=== PATIENT | female | born 1950 | race Hispanic/Latino ===

== ENCOUNTER 2017-04-15 19:23 | Emergency (ER) | payer MEDICARE, OTHER ==
[2017-04-15 19:32] VITALS: BP 131/56; PULSE 77; RESP 16; TEMP 97.6; O2SAT 100
--- NOTE | 2017-04-15 20:24 | ED PDOC ---
HPI: General Adult Time Seen by Provider: 04/15/17 19:31 Chief Complaint (Nursing): Foreign Body Chief Complaint (Provider): Right Foot Pain History Per: Patient History/Exam Limitations: no limitations Onset/Duration Of Symptoms: Hrs Current Symptoms Are (Timing): Still Present Additional Complaint(s): Samantha Brewer, a 67 year old female presents to the ED with left foot pain. The patient states that she may have steppe don something sharp. She reports that she tried to see what was in her foot but did not find anything. PMD: Hayley Wilson Past Medical History Reviewed: Historical Data, Nursing Documentation, Vital Signs Vital Signs: Last Vital Signs Temp 97.6 F 04/15/17 19:29 Pulse 77 04/15/17 19:29 Resp 16 04/15/17 19:29 BP 131/56 L 04/15/17 19:29 Pulse Ox 100 04/15/17 20:44 - Medical History PMH: No Chronic Diseases Denies: Chronic Kidney Disease - Family History Family History: States: Unknown Family Hx - Social History Current smoker - smoking cessation education provided: No Alcohol: None Drugs: Denies - Home Medications Home Medications: Ambulatory Orders Medication Instructions Recorded Clindamycin [Cleocin] 300 mg PO QID #40 cap 04/15/17 - Allergies Allergies/Adverse Reactions: Allergies Allergy/AdvReac Type Severity Reaction Status Date / Time cefaclor Allergy RASH Verified 04/15/17 19:36 ciprofloxacin [From Cipro] Allergy DIARRHEA Verified 04/15/17 19:36 clarithromycin [From Biaxin] Allergy DIARRHEA Verified 04/15/17 19:36 moxifloxacin [From Avelox] Allergy DIARRHEA Verified 04/15/17 19:36 nabumetone [From Relafen] Allergy HEADACHE Verified 04/15/17 19:36 nickel Allergy RASH Verified 04/15/17 19:36 nitrofurantoin Allergy SHORTNESS Verified 04/15/17 19:36 [From Macrodantin] OF BREATH phenazopyridine Allergy SHORTNESS Verified 04/15/17 19:36 [From Pyridium] OF BREATH sulfacetamide Allergy RASH Verified 04/15/17 19:36 Review of Systems Musculoskeletal: Positive for: Foot Pain (left foot pain) Physical Exam - Reviewed Nursing Documentation Reviewed: Yes Vital Signs Reviewed: Yes - Physical Exam Appears: Positive for: Non-toxic, No Acute Distress Head Exam: Positive for: ATRAUMATIC, NORMAL INSPECTION, NORMOCEPHALIC Skin: Positive for: Normal Color, Warm, Dry. Negative for: Rash Eye Exam: Positive for: Normal appearance, EOMI, PERRL. Negative for: Nystagmus Cardiovascular/Chest: Positive for: Regular Rate, Rhythm, Chest Non Tender. Negative for: Tachycardia Respiratory: Positive for: Normal Breath Sounds. Negative for: Rales, Rhonchi, Wheezing, Respiratory Distress Extremity: Positive for: Normal ROM, Other (2.5cm puncture wound noted to ball of left foot.). Negative for: Tenderness, Calf Tenderness, Deformity, Swelling Neurologic/Psych: Positive for: Alert, Oriented - ECG O2 Sat by Pulse Oximetry: 100 (RA) Pulse Ox Interpretation: Normal Medical Decision Making Medical Decision Makin Initial Impression: 67 year old female presenting with right foot pain Initial Plan: * Foot AP/LAT * Reevaluation * FB seen on x-ray. Podiatry consult completed. Pt to follow-up in the clinic tuesday. Scribe Attestation Documented by Paty Sharif acting as a scribe for Agnes Atwood PA-C. Scribe Attestation All medical record entries made by the Scribe were at my direction and personally dictated by me. I have reviewed the chart and agree that the record accurately reflects my personal performance of the history, physical exam, medical decision making, and the department course for this patient. I have also personally directed, reviewed, and agree with the discharge instructions and disposition. Disposition - Clinical Impression Clinical Impression: Soft tissues foreign body - Patient ED Disposition Is Patient to be Admitted: No Counseled Patient/Family Regarding: Diagnosis, Need For Followup, Rx Given - Disposition Referrals: Podiatry Clinic [Outside] Disposition: Routine/Home Disposition Time: 22:13 Condition: GOOD Additional Instructions: Please get medical clearance from your PMD for surgery. Follow-up with podiatry on tuesday. Prescriptions: Clindamycin [Cleocin] 300 mg PO QID #40 cap Instructions: Soft Tissue Foreign Body (ED)
--- NOTE | 2017-04-15 20:33 | CP.PCM.CON ---
History of Present Illness - History of Present Illness History of Present Illness: 67 year old female with PMHx including glaucoma and brain aneurism was seen in the ED for pain in the right foot. She states that around 3 pm today she stepped on something sharp and thinks that she may have a foreign body in her foot. She did not see what it was but thinks that it may be glass from a dropped drinking glass. She admits it is painful to weight bear on her right foot and is walking with weight to her heel. She washed it with soap and water afterwards and dressed with a bandaid. Denies any n/v/f/c/sob/cp. Past Patient History - Past Social History Smoking Status: Never Smoked - CARDIAC Other/Comment: Tricuspid valve regurgitation - PULMONARY Hx Respiratory Disorders: No - NEUROLOGICAL Other/Comment: Aneurysm - HEENT Hx Cataracts: Yes - RENAL Hx Chronic Kidney Disease: No - ENDOCRINE/METABOLIC Hx Endocrine Disorders: No - HEMATOLOGICAL/ONCOLOGICAL Hx Blood Disorders: No - INTEGUMENTARY Hx Dermatological Problems: No - MUSCULOSKELETAL/RHEUMATOLOGICAL Hx Musculoskeletal Disorders: No - GASTROINTESTINAL Hx Colitis: Yes - PSYCHIATRIC Hx Psychophysiologic Disorder: No Hx Substance Use: No - SURGICAL HISTORY Other/Comment: Craniotomy 1993, Bunionectomy, R meniscus repair - ANESTHESIA Hx Anesthesia: Yes Meds Allergies/Adverse Reactions: Allergies Allergy/AdvReac Type Severity Reaction Status Date / Time cefaclor Allergy RASH Verified 04/15/17 19:36 ciprofloxacin [From Cipro] Allergy DIARRHEA Verified 04/15/17 19:36 clarithromycin [From Biaxin] Allergy DIARRHEA Verified 04/15/17 19:36 moxifloxacin [From Avelox] Allergy DIARRHEA Verified 04/15/17 19:36 nabumetone [From Relafen] Allergy HEADACHE Verified 04/15/17 19:36 nickel Allergy RASH Verified 04/15/17 19:36 nitrofurantoin Allergy SHORTNESS Verified 04/15/17 19:36 [From Macrodantin] OF BREATH phenazopyridine Allergy SHORTNESS Verified 04/15/17 19:36 [From Pyridium] OF BREATH sulfacetamide Allergy RASH Verified 04/15/17 19:36 Physical Exam - Constitutional Appears: Well, Non-toxic, No Acute Distress - Extremities Exam Additional comments: Right lower extremity focused exam: Vasc: DP and PT pulses palpable 2/4. CFT < 3 seconds to all digits. Skin temperature warm to cool from proximal to distal Neuro: Gross sensation intact Derm: Small 2 mm linear wound on the plantar aspect of the 1st metatarsal noted. No drainage, no erythema, no edema noted. Ortho: Tenderness to palpation of the wound noted to the plantar aspect of the 1st metatarsal - Neurological Exam Neurological exam: Alert, Oriented x3 - Psychiatric Exam Psychiatric exam: Normal Affect, Normal Mood Results - Vital Signs Recent Vital Signs: Last Vital Signs Temp 97.6 F 04/15/17 19:29 Pulse 77 04/15/17 19:29 Resp 16 04/15/17 19:29 BP 131/56 L 04/15/17 19:29 Pulse Ox 100 04/15/17 20:24 Assessment & Plan - Assessment and Plan (Free Text) Assessment: 67 year old female with foreign body to right plantar foot Plan: patient examined and evaluated discussed in detail with attending, Dr. Alarcon radiographs reviewed- foreign body noted to plantar soft tissue of right foot patient unwilling and unable to tolerate lidocaine injection in an attempt to remove the foreign body patient will need outpatient procedure to remove foreign body patient to obtain medical optimization from her primary doctor prior to procedure dressed with bacitracin, DSD patient to ambulate to heel in surgical shoe Abx per ED PA patient to follow up with podiatry as out patient to schedule removal of foreign body
[2017-04-15] MEDS ORDERED: Lidocaine 1% Inj (20ml) IJ ONE (21:27)
[2017-04-15] MEDS ORDERED: Lidocaine 1% Inj (20ml) ONE (21:34)
--- NOTE | 2017-04-16 09:31 | RAD ---
PROCEDURE: Right Foot Radiographs. HISTORY: possible FB, ball of foot COMPARISON: None. FINDINGS: BONES: Normal. No fracture. JOINTS: Normal. SOFT TISSUES: Linear foreign body plantar aspect of the foot best seen on the lateral view at the level of the metatarsal phalangeal junctions. This measures 3.3 mm. OTHER FINDINGS: None. IMPRESSION: 3.3 mm foreign body plantar aspect of the foot, finding marked on the study.
== END 2017-04-15 22:36 | disposition home or self-care (01) ==
LOC: H.ER 19:23
DX: M79.5 Residual foreign body in soft tissue (principal)

== ENCOUNTER 2017-04-22 11:56 | Day surgery (SDC) | payer MEDICARE, OTHER ==
[2017-04-22 12:49] VITALS: RESP 18
[2017-04-22 12:50] VITALS: BMI 20.1
[2017-04-22] MEDS ORDERED: Bupivacaine 0.5% Inj(30mL) IJ ONE (13:57)
[2017-04-22] MEDS ORDERED: Lidocaine 1% Inj (20ml) IJ ONE (13:57)
--- NOTE | 2017-04-22 13:57 | CP.SDSHP ---
Same Day Surgery H & P - History Proposed Procedure: removal of foreign body right foot Pre-Op Diagnosis: painful foreign body right foot - Previous Medical/Surgical History Pulmonary: Smoking Neuro: Other (aneurysm) Pain: 4.Moderate Pain Previous Surgical History: brain surgery, right foot surgery, shoulder surgery, eye surgery - Allergies Allergies: Allergies cefaclor Allergy (Verified 04/15/17 19:36) RASH ciprofloxacin [From Cipro] Allergy (Verified 04/15/17 19:36) DIARRHEA clarithromycin [From Biaxin] Allergy (Verified 04/15/17 19:36) DIARRHEA moxifloxacin [From Avelox] Allergy (Verified 04/15/17 19:36) DIARRHEA nabumetone [From Relafen] Allergy (Verified 04/15/17 19:36) HEADACHE nickel Allergy (Verified 04/15/17 19:36) RASH nitrofurantoin [From Macrodantin] Allergy (Verified 04/15/17 19:36) SHORTNESS OF BREATH phenazopyridine [From Pyridium] Allergy (Verified 04/15/17 19:36) SHORTNESS OF BREATH sulfacetamide Allergy (Verified 04/15/17 19:36) RASH - Physical Exam General Appearance: well nourished, NAD Vital Signs: Vital Signs 04/22/17 04/22/17 12:40 12:48 Temperature 97.9 F Pulse Rate 85 85 Respiratory 18 Rate Blood Pressure 105/67 O2 Sat by Pulse 98 Oximetry Mental Status: Alert & Oriented x3 Neuro: WNL - {Optional Preform as Required} Integument: Other (foreign body sub met 2 right foot) Ortho: Other (tenderness to palpation sub met 2 right foot) - Impression Impression: Pt was seen and examined in [facility]. Pt NPO status was confirmed. All Pre-op testing and clearance was in the chart. Pt has exhausted all conservative treatment at this time and is opting for surgical intervention. Pt was explained procedure and post-operative course. All pt's questions were answered to satisfaction. No guarantees were made. Pt understands all risks, benefits and complications of procedure. Pt will follow-up with Dr. Mancuso Short Stay Discharge - Short Stay Discharge Admitting Diagnosis/Reason for Visit: S90.762D Disposition: HOME/ ROUTINE Referrals: Hayley Garcia MD [Primary Care Provider] - Instructions: RICE Therapy (GEN) Additional Instructions (Diet, Activity): --Patient in good/stable condition for discharge home. Pt to resume medications per medical reconciliation. Resume regular diet. Please keep dressing clean, dry, & intact to surgical site, use plastic bag over bandage for showering, wear post op shoe at all times when ambulating, call clinic if you see signs of infection (redness, swelling, malodor), please make an appointment to see in office/clinic within 1 week for post-op check.
--- NOTE | 2017-04-22 13:57 | CP.PCM.PN ---
Subjective - Date & Time of Evaluation Date of Evaluation: 04/22/17 Time of Evaluation: 14:01 - Subjective Subjective: 67 y/o female with PMH of brain aneurysm and glaucoma seen in [facility] for removal of foreign body from R foot. Pt states she stepped on an unknown object, possibly glass, last week, and came to the ED. Pt states she was numbed and the doctor tried to remove it but could not do it. Pt states it was painful and that she does not want to be awake for it to be removed. Pt admits to pain when walking at all as she feels like she is stepping on the object and pushing it deeper. PT denies F/C/N/V/SOB. PSH: R foot surgeries, brain surgery, R shoulder surgery All: see chart Social: admits to 1/2 pack day cigarette use, social EtOH. Denies illicit drug use Objective - Vital Signs/Intake and Output Vital Signs (last 24 hours): Temp Pulse Resp BP Pulse Ox 97.9 F 85 18 105/67 98 04/22/17 12:48 04/22/17 12:48 04/22/17 12:48 04/22/17 12:48 04/22/17 12:48 - Constitutional Appears: Well, Non-toxic, No Acute Distress - Extremities Exam Additional comments: RLE focused exam: Vasc: DP/PT 2/4. Temp gradient WNL. Localized edema sub met 2 of foot. CFT < 3 sec to all digits Neuro: Protective sensation grossly intact Ortho: Tenderness to palpation of foot sub met 2 in area of foreign body - Neurological Exam Neurological Exam: Alert, Awake, Oriented x3 - Psychiatric Exam Psychiatric exam: Normal Affect, Normal Mood Assessment and Plan - Assessment and Plan (Free Text) Assessment: 67 y/o female seen in [facility] with foreign body in right foot Plan: Pt was seen and examined in [facility] Pt NPO status was confirmed All Pre-op testing and clearance was in the chart Pt has exhausted all conservative treatment at this time and is opting for surgical intervention Pt was explained procedure and post-operative course All pt's questions were answered to satisfaction No guarantees were made Pt understands all risks, benefits and complications of procedure Pt will follow-up with Dr. Mancuso
[2017-04-22] MEDS ORDERED: Sodium Chloride 0.9% 1,000 ML IV SCH (14:00)
[2017-04-22] MEDS ORDERED: Lidocaine 1% Inj (20ml) ONE (14:20)
[2017-04-22] MEDS ORDERED: Bupivacaine 0.5% Inj(30mL) ONE (14:20)
[2017-04-22] MEDS ORDERED: Propofol 10 mg/ml Inj (20 ML) ONE (14:38)
[2017-04-22] MEDS ORDERED: Midazolam 2 MG/2 ML VIAL ONE (14:38)
[2017-04-22] MEDS ORDERED: Lactated Ringer's 1,000 ML IV ONE (14:44)
[2017-04-22] MEDS ORDERED: Bupivacaine 0.25%-Epinephrine 1:200,000 (30 ml) Inj ONE (14:46)
[2017-04-22] MEDS ORDERED: Lidocaine 2% w Epi 1:100,000 Inj IJ ONE (14:46)
[2017-04-22] MEDS ORDERED: Phenylephrine 10 mg/ml Inj ONE (14:59)
[2017-04-22] MEDS ORDERED: Lactated Ringer's 1,000 ML IV SCH (15:32)
--- NOTE | 2017-04-22 15:36 | PCM.SURG1 ---
Surgeon's Initial Post Op Note - Surgeon's Notes Surgeon: Dr. Mancuso Director Of Psychology: Annia Danielle PGY-1 Type of Anesthesia: General LMA Anesthesia Administered By: Dr. Buck Pre-Operative Diagnosis: right foot painful foreign body Operative Findings: see op report. M: 3-0 Nylon. I: 3cc of lidocaine with epinephrine, 4 cc 0.5% Marcaine plain. specimen: foreign body Post-Operative Diagnosis: same Operation Performed: removal of foreign body right foot under fluoroscopic guidance Specimen/Specimens Removed: foreign body Estimated Blood Loss: EBL {In ML}: 1 Blood Products Given: N/A Drains Used: No Drains Post-Op Condition: Good Date of Surgery/Procedure: 04/22/17 Time of Surgery/Procedure: 14:30
[2017-04-22 15:58] VITALS: O2SAT 100
[2017-04-22 16:40] VITALS: BP 102/62; PULSE 65; TEMP 97.7
--- NOTE | 2017-04-23 22:47 | OP ---
PROCEDURE DATE: 04/22/2017 SURGEON: Dr. Armani Mancuso. PATENT SOLICITOR: Dr. Annia Danielle, DPM, PGY-1. LAW ENFORCEMENT INSTRUCTOR: Dr. Buck. ANESTHESIA: General LMA with local, 3 mL of 1% lidocaine with epinephrine. PREOPERATIVE DIAGNOSIS: Right foot painful foreign body. POSTOPERATIVE DIAGNOSIS: Right foot painful foreign body. NAME OF THE PROCEDURE: Right foot foreign body removal. INDICATION: The patient is a 67-year-old female with the above diagnosis. The patient presented to [facility] ED on 04/15/2017 with a painful foreign body to the plantar aspect of the right foot, but was unable and unwilling to tolerate bedside removal. The patient has exhausted all conservative treatment at this time and now requests surgical intervention. The patient signed a consent form after careful explanation of risks, benefits and possible complications and alternatives of a surgical procedure. All questions were answered, no guarantees were given nor implied. Consent was signed and NPO status was confirmed prior to taking the patient into the OR. PREPARATION: The patient was brought into the operating room and placed on the operating room table in a supine position. Time out was performed for identification of the correct patient and procedure. The patient received a total of 3 mL of 1% lidocaine with epinephrine in a proximal V type fashion to the plantar aspect of the right foot. The right foot was then prepped and draped in normal sterile manner. No tourniquet was used during the procedure. Attention was directed to the plantar aspect of the right foot, second metatarsal head and an approximately 0.5-cm linear incision was made with a #15 blade following the course of the foreign body. Hyperkeratotic tissue was excisionally debrided to healthy skin. The excision was deepened through subcutaneous tissue using sharp and blunt dissection. Care was taken to identify and retract all vital neurovascular structures. A mini C-arm was used to visualize the foreign body. Using a mosquito hemostat, the foreign body was then removed from the plantar foot. The wound was then flushed with copious amounts of normal sterile saline solution. The skin was then re-approximated using 4-0 nylon with 2 retention sutures. The incision was then dressed with Xeroform and the right foot was then dressed with a dry sterile dressing. POSTOPERATIVE CONDITION: The patient tolerated the procedure and anesthesia well and was escorted to the recovery room with vital signs stable and neurovascular status intact to the right foot. The patient will be partial weightbearing to the heel in a surgical shoe and will follow up with Dr. Mancuso in office next week. Annia Danielle DPM Armani Mancuso DPM [place]
== END 2017-04-22 18:00 | disposition home or self-care (01) ==
LOC: H.OPSURG 11:56
PROVIDERS: ATTEND Podiatrist Foot & Ankle Surgery
DX: S90.851A Superficial foreign body, right foot, initial encounter (principal); X58.XXXA Exposure to other specified factors, initial encounter; F17.210 Nicotine dependence, cigarettes, uncomplicated; H40.9 Unspecified glaucoma
CPT/HCPCS: 28190; J2250; J2370; J2405; J2704; J2765; J3010; J7030; J7120

== ENCOUNTER 2017-07-15 06:24 | Day surgery (SDC) | payer MEDICARE, OTHER ==
[2017-07-12 09:36] VITALS: BMI 20.5
[2017-07-15 06:54] VITALS: O2SAT 100
[2017-07-15] MEDS ORDERED: Lactated Ringer's 1,000 ML IV ONE (07:09)
[2017-07-15] MEDS ORDERED: Bupivacaine 0.5% 50 ML IJ ONE (07:10)
[2017-07-15] MEDS ORDERED: Betamethasone Soluspan 30 mg/5mL Inj Susp IM ONE (07:10)
[2017-07-15] MEDS ORDERED: Lidocaine 1% Inj (20ml) IJ ONE (07:10)
[2017-07-15] MEDS ORDERED: Sodium Chloride 0.9% 1,000 ML IV SCH (07:15)
--- NOTE | 2017-07-15 07:18 | CP.SDSHP ---
Same Day Surgery H & P - History Proposed Procedure: R - foot fluoroscopy guided intraarticular injection Pre-Op Diagnosis: Right forefoot cyst - Allergies Allergies: Allergies cefaclor Allergy (Verified 04/15/17 19:36) RASH ciprofloxacin [From Cipro] Allergy (Verified 04/15/17 19:36) DIARRHEA clarithromycin [From Biaxin] Allergy (Verified 04/15/17 19:36) DIARRHEA moxifloxacin [From Avelox] Allergy (Verified 04/15/17 19:36) DIARRHEA nabumetone [From Relafen] Allergy (Verified 04/15/17 19:36) HEADACHE nickel Allergy (Verified 04/15/17 19:36) RASH nitrofurantoin [From Macrodantin] Allergy (Verified 04/15/17 19:36) SHORTNESS OF BREATH phenazopyridine [From Pyridium] Allergy (Verified 04/15/17 19:36) SHORTNESS OF BREATH sulfacetamide Allergy (Verified 04/15/17 19:36) RASH - Physical Exam Vital Signs: Vital Signs 07/15/17 07/15/17 06:52 06:55 Temperature 97.4 F L Pulse Rate 70 70 Respiratory 20 Rate Blood Pressure 107/70 O2 Sat by Pulse 100 Oximetry Mental Status: Alert & Oriented x3 Neuro: WNL Heart: WNL Lungs: WNL - Date & Time Date: 07/15/17 Time: 07:17 Short Stay Discharge - Short Stay Discharge Admitting Diagnosis/Reason for Visit: M77.9 Disposition: HOME/ ROUTINE Referrals: Hayley Garcia MD [Primary Care Provider] - Additional Instructions (Diet, Activity): -Patient in good/stable condition for discharge home -Pt to resume medications per medical reconciliation -Resume regular diet Please keep dressing clean, dry, & intact to surgical site -Use plastic bag over bandage for showering -Wear post op shoe at all times when ambulating -Call clinic if you seesigns of infection (redness, swelling, malodor) -Please make an appointment to see Dr. Mancuso in office/clinic within 1 week for post-op check Progress Note/Discharge Note with Instructions: - Patient evaluated bedside in recovery s/p surgical procedure. - After surgical procedure patient in NAD - (+) Void, (+) Appetite - Capillary refill time <3s and NVSI intact. - Patient denies complaints at this time - Post operative instructions and plan of care explained to patient at length. - Pt. acknowledges understanding. - Patient stable for DC per podiatric surgery
--- NOTE | 2017-07-15 07:20 | CP.PCM.PN ---
Subjective - Date & Time of Evaluation Date of Evaluation: 07/15/17 Time of Evaluation: 07:18 - Subjective Subjective: 67 y/o female seen and evaluated at bedside in [facility] for right foot plantar cyst aspiration and intaarticular injection procedure. Patient states that she has been NPO since midnight last night. Denies of any adverse reaction to anesthesia. Denies of any recent F/N/V/C/SOB/CP today. Denies of any other pedal complains now. PSH: R foot surgeries, brain surgery, R shoulder surgery All: see chart Social: admits to 1/2 pack day cigarette use, social EtOH. Denies illicit drug use Objective - Vital Signs/Intake and Output Vital Signs (last 24 hours): Temp Pulse Resp BP Pulse Ox 97.4 F L 70 20 107/70 100 07/15/17 06:52 07/15/17 06:55 07/15/17 06:52 07/15/17 06:52 07/15/17 06:52 - Medications Medications: Current Medications Betamethasone Acet/Betameth SodPhos (Celestone Soluspan) 10 mg IM ONCE ONE Stop: 07/15/17 07:11 Bupivacaine HCl (Marcaine 0.5% 50 Ml) 50 ml IJ ONCE ONE Stop: 07/15/17 07:11 Sodium Chloride (Sodium Chloride 0.9%) 1,000 mls @ 100 mls/hr IV .Q10H RACHEL Stop: 07/16/17 07:13 Clindamycin Phosphate 600 mg/ (Sodium Chloride) 54 mls @ 54 mls/hr IVPB ONCE ONE PRN Reason: Protocol Stop: 07/15/17 08:13 Lidocaine HCl (Lidocaine 1% (20ml)) 20 ml IJ ONCE ONE Stop: 07/15/17 07:11 - Constitutional Appears: Well, Non-toxic, No Acute Distress - Extremities Exam Extremities Exam: absent: Calf Tenderness Additional comments: Right LE focused exam: Vasc: DP/PT 2/4. Temp gradient WNL. Localized edema sub met 2 of foot. Cap refill time: < 3 sec to all digits Derm: doughy soft tissue mass palpated submet head 2 Neuro: Protective sensation grossly intact Ortho: Tenderness to palpation of foot sub met 2 - Neurological Exam Neurological Exam: Alert, Awake, Oriented x3 - Psychiatric Exam Psychiatric exam: Normal Affect, Normal Mood Assessment and Plan - Assessment and Plan (Free Text) Assessment: 67 y/o female seen and evaluated at bedside in [facility] for right foot plantar cyst aspiration and intaarticular injection procedure. Plan: Pt was seen and examined in [facility] Pt NPO status was confirmed All Pre-op testing and clearance was in the chart Pt has exhausted all conservative treatment at this time and is opting for surgical intervention Pt was explained procedure and post-operative course All pt's questions were answered to satisfaction No guarantees were made Pt understands all risks, benefits and complications of procedure Pt will follow-up with Dr. Mancuso
[2017-07-15] MEDS ORDERED: Clindamycin 600mg/50ml NS 600 MG/50 ML BAG IVPB ONE (07:30)
[2017-07-15] MEDS ORDERED: Midazolam 2 MG/2 ML VIAL ONE (07:39)
[2017-07-15] MEDS ORDERED: Bupivacaine 0.5% Inj(30mL) ONE (07:39)
[2017-07-15] MEDS ORDERED: Lidocaine 1% Inj (20ml) ONE (07:39)
[2017-07-15] MEDS ORDERED: Propofol 10 mg/ml Inj (20 ML) ONE (07:39)
[2017-07-15] MEDS ORDERED: ePHEDrine 50 mg/ml Inj ONE (08:11)
--- NOTE | 2017-07-15 08:31 | PCM.SURG1 ---
Surgeon's Initial Post Op Note - Surgeon's Notes Surgeon: Dr. Mancuso DPM Claim Processor: Dr. Kaleigh Peres PGY-2 Type of Anesthesia: IV Sedation, Local Anesthesia Administered By: Dr. Rodolfo OLIVER Pre-Operative Diagnosis: Painful cyst of 2nd digit of right foot Operative Findings: See dictation. M:none. I: 10 cc of 1% lidocaine plain, 2 cc of celestone Post-Operative Diagnosis: Same Operation Performed: Fluroscopic intraarticular injection of 2nd digit using steroid Specimen/Specimens Removed: none Estimated Blood Loss: EBL {In ML}: 0 Blood Products Given: N/A Drains Used: No Drains Post-Op Condition: Good Date of Surgery/Procedure: 07/15/17 Time of Surgery/Procedure: 08:31
[2017-07-15] MEDS ORDERED: Lactated Ringer's 1,000 ML IV SCH (08:45)
[2017-07-15 08:55] VITALS: RESP 18
[2017-07-15 10:05] VITALS: BP 95/53; PULSE 64; TEMP 97.3
--- NOTE | 2017-07-19 10:04 | OP ---
PROCEDURE DATE: 07/15/2017 PREOPERATIVE DIAGNOSIS: Painful cyst of second metatarsophalangeal joint, right foot. POSTOPERATIVE DIAGNOSIS: Painful cyst of second metatarsophalangeal joint, right foot. NAME OF PROCEDURE: Intraarticular steroid injection of second metatarsophalangeal joint, right foot. SURGEON: Armani Mancuso DPM CAMP BOSS: Mansi Peres DPM ANESTHESIA: MAC IV sedation with local injection. FLAT SURFACER: Sabino Reynolds MD INDICATION: The patient is a 57-year-old female with the above-mentioned diagnosis. The patient has exhausted conservative treatment measures at this time and now is requesting surgical intervention. The patient signed this consent after careful explanation of all risks, benefits, complications, and alternatives for surgical procedure. Of note, several months prior the patient had been brought to the operating room for removal of an unknown foreign body. No guarantees were given nor employed. Time-out was performed for correct patient and identification of correct procedure. N.p.o. status was performed prior to taking the patient to the operating room. PREPARATION: The patient was brought to the operating room and placed in the operating room table in a supine position. No ankle tourniquet was required for this procedure. After induction of IV sedation, the patient received a total of 10 mL consisting of 1% lidocaine plain in a local block fashion to the patient's right ankle. Once local anesthesia was achieved, the right foot was then prepped and draped in the usual sterile manner and the procedure was began. DESCRIPTION OF PROCEDURE: An intraarticular steroid injection to second metatarsophalangeal joint of right foot. Attention was then directed to the plantar aspect of the second metatarsophalangeal joint of the patient's right foot, where an 18-gauge needle was utilized to enter the metatarsophalangeal joint in the plantar aspect. Confirmation of the needle location was confirmed using intraoperative imaging. At this time, a 10 mL syringe was utilized with the 18-gauge needle in an aspirate any fluid from the joint of which none was aspirated. Using a 25-gauge needle 1.5 mL of Celestone was injected at the plantar aspect of the second metatarsophalangeal joint and the remaining 4 mL of Celestone was injected from the dorsal to plantar aspect at the right second metatarsophalangeal joint. Postoperative bandages included Betadine-soaked Adaptic, 4 x 4's, MARGARITA bandage, and Kerlix dressing. POSTOPERATIVE CONDITION: The patient tolerated the anesthesia and procedure well and was escorted to the recovery room, vital signs stable, and neurovascular status intact to the right foot. The patient will follow up with Dr. Mancuso in the office within 1 week. Mansi Peres DPM Armani Mancuso DPM
== END 2017-07-15 10:55 | disposition home or self-care (01) ==
LOC: H.OPSURG 06:24
PROVIDERS: ATTEND Podiatrist Foot & Ankle Surgery
DX: M25.811 Other specified joint disorders, right shoulder (principal)
CPT/HCPCS: 28122; J0702; J2001; J2250; J2704; J3010; J7040; J7120

== ENCOUNTER 2017-11-09 11:04 | Day surgery (SDC) | payer MEDICARE, OTHER ==
[2017-11-08 14:19] VITALS: BMI 20.3
--- NOTE | 2017-11-09 11:42 | CP.PCM.PN ---
Subjective - Date & Time of Evaluation Date of Evaluation: 11/09/17 Time of Evaluation: 11:41 - Subjective Subjective: 67 y/o female with PMH of brain aneurysm and glaucoma seen in [facility] for right foot revisional surgery. Pt states she has been having pain under the 2nd toe for several months. States she has a history of foot surgeries that have failed to resolve her pain. Confirms NPO status after midnight. Denies F/C/N/V/CP/SOB PSH: R foot surgeries, brain surgery, R shoulder surgery All: see chart Social: 1/2 pack day cigarette use, social EtOH. Denies illicit drug use Objective - Constitutional Appears: Well, Non-toxic, No Acute Distress - Extremities Exam Additional comments: RLE focused exam: Vasc: DP/PT pulses 2/4. Temperature gradient warm to cool. CFt < 3 sec to all digits. No pedal edema Derm: no open lesions, no erythema, no ecchymosis. Hyperkeratotic lesion noted sub met 2 Neuro: Protective sensation grossly intact Ortho: tenderness to palpation sub met 2 at site of hyperkeratotic lesion. Hallux underlapping 2nd digit. - Neurological Exam Neurological Exam: Alert, Awake, Oriented x3 - Psychiatric Exam Psychiatric exam: Normal Affect, Normal Mood Assessment and Plan - Assessment and Plan (Free Text) Assessment: 67 y/o female seen in [facility] prior to right foot surgery today with Dr. Quezada at 1pm Plan: Pt was seen and examined in [facility] Pt NPO status was confirmed All pre-op testing and clearance in chart Pt has exhausted all conservative treatment at this time and is opting for surgical intervention Pt was explained procedure and post-operative course All pt's questions were answered to satisfaction No guarantees were made Pt understands all risks, benefits and complications of procedure Pt will follow-up with Dr. Quezada within 1 week of surgery
--- NOTE | 2017-11-09 11:42 | CP.SDSHP ---
Same Day Surgery H & P - History Proposed Procedure: right foot 1st toe osteotomy, 2nd metatarsal osteotomy, repair of dislocated 2nd metatarsophalangeal joint, repair of 2nd digit plantar plate - Previous Medical/Surgical History Neuro: Other (hx of brain aneurysm) Pain: 4.Moderate Pain Previous Surgical History: right foot surgery, shoulder surgery - Allergies Allergies: Allergies cefaclor Allergy (Verified 04/15/17 19:36) RASH ciprofloxacin [From Cipro] Allergy (Verified 04/15/17 19:36) DIARRHEA clarithromycin [From Biaxin] Allergy (Verified 04/15/17 19:36) DIARRHEA moxifloxacin [From Avelox] Allergy (Verified 04/15/17 19:36) DIARRHEA nabumetone [From Relafen] Allergy (Verified 04/15/17 19:36) HEADACHE nickel Allergy (Verified 04/15/17 19:36) RASH nitrofurantoin [From Macrodantin] Allergy (Verified 04/15/17 19:36) SHORTNESS OF BREATH phenazopyridine [From Pyridium] Allergy (Verified 04/15/17 19:36) SHORTNESS OF BREATH sulfacetamide Allergy (Verified 04/15/17 19:36) RASH - Current Medications Current Medications: Lumigan - Physical Exam Mental Status: Alert & Oriented x3 - {Optional Preform as Required} Integument: Other (hyperkeratotic lesion right foot sub met 2) Ortho: Other (tenderness to palpation sub met 2 right foot, hallux underlapping 2nd toe right foot) - Impression Impression: Pt was seen and examined in [facility]. Pt NPO status was confirmed. All pre-op testing and clearance in chart. Pt has exhausted all conservative treatment at this time and is opting for surgical intervention. Pt was explained procedure and post-operative course. All pt's questions were answered to satisfaction. No guarantees were made. Pt understands all risks, benefits and complications of procedure. Pt will follow-up with Dr. Quezada within 1 week of surgery - Date & Time Date: 11/09/17 Time: 12:01 Short Stay Discharge - Short Stay Discharge Admitting Diagnosis/Reason for Visit: Q66.89/ M20.41/ M20.541/ Disposition: HOME/ ROUTINE Referrals: Hayley Garcia MD [Primary Care Provider] - Additional Instructions (Diet, Activity): -Patient in good/stable condition for discharge home -Pt to resume medications per medical reconciliation -Resume regular diet Please keep dressing clean, dry, & intact to surgical site -Use plastic bag over bandage for showering -Wear post op shoe at all times when ambulating -Call clinic if you see signs of infection (redness, swelling, malodor) -Please make an appointment to see Dr. Quezada in office/clinic within 1 week for post-op check Progress Note/Discharge Note with Instructions: - Patient evaluated bedside in recovery s/p surgical procedure. - After surgical procedure patient in NAD - (+) Void, (+) Appetite - Capillary refill time <3s and NVSI intact. - Patient denies complaints at this time - Post operative instructions and plan of care explained to patient at length. - Pt. acknowledges understanding. - Patient stable for DC per podiatric surgery
[2017-11-09] MEDS ORDERED: Bupivacaine 0.5% Inj(30mL) IJ ONE (12:02)
[2017-11-09] MEDS ORDERED: Lidocaine 1% Inj (20ml) IJ ONE (12:02)
[2017-11-09] MEDS ORDERED: Clindamycin 600mg/50ml NS 600 MG/50 ML BAG IVPB SCH (12:15)
[2017-11-09] MEDS ORDERED: Succinylcholine 200 mg/10 ml Inj IV ONE (12:30)
[2017-11-09] MEDS ORDERED: Midazolam 2 MG/2 ML VIAL ONE (12:30)
[2017-11-09] MEDS ORDERED: Rocuronium 10 mg/ml (5 ml) ONE (12:30)
[2017-11-09] MEDS ORDERED: Propofol 10 mg/ml Inj (20 ML) ONE (12:30)
[2017-11-09] MEDS ORDERED: Bupivacaine 0.5% Inj(30mL) ONE (12:38)
[2017-11-09] MEDS ORDERED: Lidocaine 2% Inj (20ml) ONE (12:38)
[2017-11-09] MEDS ORDERED: Ropivacaine 0.5% 30ML IV ONE (12:41)
[2017-11-09] MEDS ORDERED: Lactated Ringer's 1,000 ML IV ONE ×2 (13:05→13:59)
[2017-11-09] MEDS ORDERED: Phenylephrine 10 mg/ml Inj ONE (13:13)
[2017-11-09] MEDS ORDERED: ePHEDrine 50 mg/ml Inj ONE (13:16)
[2017-11-09] MEDS: Clindamycin 600mg/50ml NS 600 MG/50 ML BAG IVPB SCH ×2 (13:17→13:21)
[2017-11-09] MEDS ORDERED: Bupivacaine 0.5% 50 ML IJ ONE ×3 (13:21→14:56)
[2017-11-09] MEDS ORDERED: Lidocaine 2% Inj (20ml) IJ ONE (13:21)
[2017-11-09] MEDS ORDERED: Dexamethasone 4 mg/1 ml ONE ×2 (14:26→14:53)
[2017-11-09] MEDS ORDERED: Dexamethasone 4 mg/1 ml IM ONE (14:55)
--- NOTE | 2017-11-09 15:06 | PCM.SURG1 ---
Surgeon's Initial Post Op Note - Surgeon's Notes Surgeon: Dr. Quezada [employer] Developer: Dr. Lindsey Cedeno PGY-3, Marbin Mcrae PGY-1 Type of Anesthesia: General LMA, Local Anesthesia Administered By: Dr. Montoya Pre-Operative Diagnosis: right foot elongated 2nd metatarsal, crooked right big toe, predislocated right 2nd metatarsophalangeal joint Operative Findings: see operative report. I: 20cc 1:1 mix 2% Lidocaine plain and 0.5% Marcaine plain; 10cc 0.5% Marcaine plain post-op, 8mg dexamethasone post-op. M: Arthrex Viper, 14mm and 16mm 2.0 screws, 3-0 Vicryl, 4-0 Monocryl. Tourniquet time 81 min 250mmHg Post-Operative Diagnosis: right foot elongated 2nd metatarsal, crooked right big toe, predislocated right 2nd metatarsophalangeal joint Operation Performed: repair of right foot 2nd metatarsophalangeal joint predislocation with repair of plantar plate, right hallux Sanjiv osteotomy, right foot 2nd metatarsal Rosalia osteotomy Specimen/Specimens Removed: none Estimated Blood Loss: EBL {In ML}: 5 Blood Products Given: N/A Drains Used: No Drains Post-Op Condition: Good Date of Surgery/Procedure: 11/09/17 Time of Surgery/Procedure: 15:10
[2017-11-09] MEDS ORDERED: Lactated Ringer's 1,000 ML IV SCH (15:15)
--- NOTE | 2017-11-09 16:29 | RAD ---
PROCEDURE: Right Foot Radiographs. HISTORY: s/p right foot surgery COMPARISON: 04/15/2017 FINDINGS: BONES: Interval surgical changes osteotomy 1st proximal phalanx. Postsurgical changes 2nd metatarsal head suggested. The postsurgical changes of the 1st metatarsal are similar in appearance. No interval fracture noted. No dislocation noted. No periosteal reaction seen to suggest osteomyelitis. A residual track over the 2nd proximal phalanx noted. Prior screw here inferred. No fracture seen. JOINTS: 1st metatarsal joint space narrowing -osteoarthrosis SOFT TISSUES: Diffuse soft tissue swelling and overlying bandaging noted. Prior plantar oft tissue foreign body is difficult to appreciate on this exam. Due to differences in projection. No true lateral now available OTHER FINDINGS: None. IMPRESSION: Interval surgical changes as above
[2017-11-09 16:43] VITALS: RESP 18
[2017-11-09 17:22] VITALS: BP 100/67; PULSE 86; TEMP 97.4; O2SAT 95
--- NOTE | 2017-11-14 08:57 | OP ---
PROCEDURE DATE: 11/09/2017 PREOPERATIVE DIAGNOSES: 1. Right foot hallux deformity. 2. Right second plantar plate rupture. POSTOPERATIVE DIAGNOSES: 1. Right foot hallux deformity. 2. Right second plantar plate rupture. NAME OF PROCEDURE: 1. Right foot johana osteotomy. 2. Right foot second metatarsal Rosalia osteotomy with repair of plantar plate using Arthrex Viper. SURGEON: Elian Quezada DPM [employer] TUTOR: Lindsey Cedeno DPM, PGY3 TYPE OF ANESTHESIA: IV sedation with local anesthesia. INDICATIONS: The patient is a 67-year-old female with the above-mentioned diagnoses. The patient has exhausted conservative treatment at this time and is now requesting surgical intervention. The patient signed the consent. After careful explanation of risks, benefits, complications, and alternatives for surgical procedure, no guarantees were given nor implied. A 600 mg of clindamycin IV were given to the patient prior to the procedure and n.p.o. status was confirmed prior to taking the patient to the operating room. PREPARATION: The patient was brought to the operating room and placed on the operating room table in supine position. A well-padded pneumatic ankle tourniquet was placed in the patient's left ankle in a supramalleolar position. After induction of IV sedation, a total of 20 mL of 1:1 mixture as 0.5% Marcaine and 1% lidocaine plain were injected in a local block fashion to the right foot. The foot was then prepped and draped in the usual sterile manner and the procedure began. DESCRIPTION OF PROCEDURE: PROCEDURE #1: Right foot johana osteotomy. Attention was directed to the hallux of the right foot where an approximately 2.5 cm linear longitudinal incision was created at the medial aspect of the hallux. The incision was deepened through the subcutaneous tissue with care being taken to identify and retract all medial neurovascular structures. All bleeders were cauterized and ligated as necessary. At this time, a longitudinal periosteal incision was created reflecting the periosteal medially and laterally thus exposing the shaft of the proximal phalanx of the hallux in the operative field. Using a sagittal bone saw, an oblique wedge osteotomy was created with the base medially and the lateral cortex was intact in order to act as a stabilizing hinge. The wedge of the bone was removed and the osteotomy was carefully closed down. Once this was accomplished, a small clamp was utilized to maintain compression and two 2.0 Synthes cortical screws were inserted across the osteotomy site and there is excellent compression noted following standard AO principles and technique. At this time, the wound was copiously irrigated using normal sterile saline. Correction of the deformity was noted to be excellent. Deep tissues were closed using 4-0 Vicryl and skin was closed using 4-0 Monocryl in a running subcuticular fashion. PROCEDURE #2: Second metatarsal Rosalia osteotomy with repair of plantar plate using Arthrex Viper. Attention was directed to dorsal aspect of the second metatarsophalangeal joint where a curvilinear incision was created overlying the second metatarsal head. The incision was deepened through the subcutaneous tissues with care being taken to identify and retract all vital neurovascular structures. All bleeders were cauterized and ligated as necessary. At this time, the extensor tendon was identified and mobilized and it was carefully retracted laterally. Next, a periosteal incision was created overlying the second metatarsal head and the periosteum was retracted medially and laterally, thus exposing the metatarsal head into the operative field. Using a sagittal bone saw, a bone cut was created from the dorsal distal to plantar proximal to the head of the metatarsal. The osteotomy was completed and the metatarsal head was shifted posteriorly along the metatarsal and was provisionally fixated using a K-wire. A second K-wire was then inserted into the base of the proximal phalanx and distractor was inserted over the K-wire in order to distract of the metatarsophalangeal joint for the pressure of the plantar plate. At this time, a plantar plate was identified, it was carefully dissected free from the proximal phalanx of the hallux. The base of the proximal phalanx was then roughened up using a rasp in order for healing of the plantar plate to occur and adhering to the base of the proximal phalanx. Once this was performed, the were used to pass the through the medial and lateral aspect of the distal pressures of the plantar plate. Next, two K-wires were used to drill hole medially and laterally through the base of the proximal phalanx. The kit were used to from plantar to dorsal through the drill holes. Once this was completed, the toe was held into proper alignment and were tightly tied down over the proximal phalanx base in order to maintain tightness of the plantar plate. Once this was performed, it was noted that the toe was fitting in a on the plantar plate. suture was cut and at this time, the Rosalia osteotomy was fixated using a 2.0 Synthes cortical screw x2 following standard AO principles and techniques. The wound was copiously irrigated using normal sterile saline. The deep tissues were closed using 3-0 Vicryl, subcuticular closure was done using 4-0 Vicryl, and skin was closed using 4-0 Monocryl in a running subcuticular fashion. The wound was dressed using Steri-Strips, saline-soaked gauze, 4x4s, and Michael. POSTOPERATIVE CONDITION: The patient tolerated the anesthesia and procedure well and was escorted to the recovery room with vital signs stable and neurovascular status intact to the right foot. The patient will follow up with Dr. Quezada in his office next week. Lindsey Cedeno DPM Elian Quezada DPM
== END 2017-11-09 17:20 | disposition home or self-care (01) ==
LOC: H.OPSURG 11:04
PROVIDERS: ATTEND Podiatrist
DX: M20.5X1 Other deformities of toe(s) (acquired), right foot (principal); J44.9 Chronic obstructive pulmonary disease, unspecified; E78.5 Hyperlipidemia, unspecified; H40.9 Unspecified glaucoma; I34.0 Nonrheumatic mitral (valve) insufficiency; S93.129A Dislocation of metatarsophalangeal joint of unspecified toe(s), initial encounter; Z72.0 Tobacco use
CPT/HCPCS: 28298; 28308; 73630; 97161; G8978; G8979; G8980; J0330; J1100; J2001; J2250; J2370; J2704; J3010; J7120

== ENCOUNTER 2018-06-23 06:59 | Emergency (ER) | payer MEDICARE, OTHER ==
[2018-06-23 06:59] VITALS: BMI 20.3
--- NOTE | 2018-06-23 08:10 | ED PDOC ---
HPI: General Adult Time Seen by Provider: 06/23/18 07:23 Chief Complaint (Nursing): Rib Injury Chief Complaint (Provider): Right Rib Pain, Right Upper Back, Shortness of Breath History Per: Patient History/Exam Limitations: no limitations Onset/Duration Of Symptoms: Sudden Onset (0400) Current Symptoms Are (Timing): Still Present Additional Complaint(s): 68 year old female, with a PMHx of osteoporosis, glaucoma, and aneurysm (present for years), presenting for evaluation of right rib pain and right upper back pain s/p mechanical fall at 0400. Patient reports she was standing on a chair doing house work when she fell and landed on the floor on her right side. Patient reports sharp pain on her right side and right upper back. Patient also reports some difficulty catching her breath due to the pain. Patient states the pain is worse when moving and on deep inspriation. Patient denies taking any medication prior to arrival for her pain. Patient further reports hitting her head on the floor when she fell. Patient denies any LOC and reports full recall of the events prior to, during, and after her fall. Patient also denies any severe headache, dizziness, syncope, nausea, vomiting, vision changes, or use of Aspirin or anti-coagulants. Patient denies any other injuries or complaints at this time. PMD: Dr. Garcia Past Medical History Reviewed: Historical Data, Nursing Documentation, Vital Signs Vital Signs: Last Vital Signs Temp 97.8 F 06/23/18 07:28 Pulse 89 06/23/18 07:28 Resp 16 06/23/18 07:28 BP 132/82 06/23/18 07:28 Pulse Ox 98 06/23/18 07:28 - Medical History PMH: Anxiety, Osteoporosis Denies: Chronic Kidney Disease Other PMH: Aneurysm, Glaucoma - Surgical History Surgical History: Tonsillectomy Other surgeries: Cataract surgery - Family History Family History: States: Unknown Family Hx - Home Medications Home Medications: Ambulatory Orders Medication Instructions Recorded Bimatoprost [Lumigan 2.5 ml] 2.5 ml OP DAILY 04/22/17 Cetirizine HCl [Zyrtec Allergy] 10 mg PO DAILY 04/22/17 cycloSPORINE [Restasis] 1 ea OP BID 04/22/17 Cholecalciferol (Vitamin D3) 1 cap PO DAILY 11/09/17 [Vitamin D3] Flaxseed Oil [Natural Flax Seed 1,000 mg PO DAILY 11/09/17 Oil] oxyCODONE/Acetaminophen [Percocet 1 ea PO Q6 PRN #15 tab 06/23/18 5/325 mg Tab] - Allergies Allergies/Adverse Reactions: Allergies Allergy/AdvReac Type Severity Reaction Status Date / Time cefaclor Allergy RASH Verified 06/23/18 07:27 ciprofloxacin [From Cipro] Allergy DIARRHEA Verified 06/23/18 07:27 clarithromycin [From Biaxin] Allergy DIARRHEA Verified 06/23/18 07:27 moxifloxacin [From Avelox] Allergy DIARRHEA Verified 06/23/18 07:27 nabumetone [From Relafen] Allergy HEADACHE Verified 06/23/18 07:27 nickel Allergy RASH Verified 06/23/18 07:27 nitrofurantoin Allergy SHORTNESS Verified 06/23/18 07:27 [From Macrodantin] OF BREATH phenazopyridine Allergy SHORTNESS Verified 06/23/18 07:27 [From Pyridium] OF BREATH sulfacetamide Allergy RASH Verified 06/23/18 07:27 Review of Systems ROS Statement: Except As Marked, All Systems Reviewed And Found Negative Eyes: Negative for: Vision Change Cardiovascular: Positive for: Chest Pain (right rib pain) Respiratory: Positive for: Shortness of Breath Gastrointestinal: Negative for: Nausea, Vomiting Musculoskeletal: Positive for: Back Pain Neurological: Negative for: Weakness, Change in Speech, Headache, Dizziness Physical Exam - Reviewed Nursing Documentation Reviewed: Yes Vital Signs Reviewed: Yes - Physical Exam Appears: Positive for: Non-toxic, No Acute Distress Head Exam: Positive for: ATRAUMATIC, NORMAL INSPECTION, NORMOCEPHALIC Skin: Positive for: Normal Color, Warm, Dry. Negative for: Rash Eye Exam: Positive for: EOMI, Normal appearance, PERRL ENT: Positive for: Normal ENT Inspection Neck: Positive for: Normal, Painless ROM, Supple Cardiovascular/Chest: Positive for: Regular Rate, Rhythm. Negative for: Chest Non Tender (diffuse tenderness to palpation throughout right ribs, (-) palpable deformity, (-) ecchymosis), Murmur Respiratory: Positive for: Normal Breath Sounds. Negative for: Respiratory Distress Gastrointestinal/Abdominal: Positive for: Normal Exam, Soft. Negative for: Tenderness Back: Positive for: Muscle Spasm, Other (diffuse tenderness to palpation throughout right upper back, (-) tenderness in lower back, (-) ecchymosis, (-) deformity) Extremity: Positive for: Normal ROM. Negative for: Pedal Edema, Deformity Neurologic/Psych: Positive for: Alert, Oriented (x3). Negative for: Motor/Sensory Deficits - ECG O2 Sat by Pulse Oximetry: 98 (RA) Pulse Ox Interpretation: Normal Medical Decision Making Medical Decision Makin Initial Impression: Right upper back pain, right rib pain, and head injury s/p mechanical fall. Differential diagnoses forinclude, but are not limited to blunt chest trauma, r/o fractures. Patient with minor head injury. Patient with no complaints of severe headache, dizziness, syncope, or vision changes and denies use of Aspirin or anti-coagulants. No indication for CT head at this time. Plan: -X-ray right ribs and chest -EKG -Flexeril 10mg PO -Tramadol 50mg PO -Reevaluation 09 RIGHT RIB X-RAY FINDINGS: RIGHT RIBS: No fracture or focal lesion visualized. LUNGS: Clear. No significant interval change appreciated. PLEURA: No pneumothorax or pleural fluid. CARDIOVASCULAR: Normal cardiac size. No pulmonary vascular congestion. No aortic atherosclerotic calcification present OTHER FINDINGS: None. IMPRESSION: Unremarkable radiographs of the chest and right ribs. No right rib fracture. X-ray reviewed by me and found to be suspicious for rib fracture. CT chest ordered. 958 CT CHEST FINDINGS: LUNGS: Mild posterior dependent atelectasis noted bilaterally. Small nodular opacity noted at the inferior lateral aspect of the right middle lobe may represent infectious process versus sequela of prior infection or inflammatory process. Otherwise the lungs are clear. MEDIASTINUM: Unremarkable thoracic aorta. No aneurysm. The heart is upper normal limit in size. Main pulmonary artery unremarkable. No vascular congestion. No lymphadenopathy. No aortic atherosclerotic calcification. PLEURA: No pleural fluid. No pneumothorax. BONES: There is acute displaced fracture at the posterior aspect of the right 8th rib and acute nondisplaced fracture at the posterior lateral aspect of the right 7th rib. UPPER ABDOMEN: Grossly unremarkable. OTHER FINDINGS: None. IMPRESSION: Acute displaced fracture at the posterior aspect of the right 8th rib and acute nondisplaced fracture at the posterior lateral aspect of the right 7 rib. No evidence of pleural effusion or pneumothorax. No evidence of lung contusion. Small nodular opacity at the right middle lobe. Scribe Attestation: Documented by Jose Raul Varghese, acting as a scribe for Michelle Suresh MD. Provider Scribe Attestation: All medical record entries made by the Scribe were at my direction and personally dictated by me. I have reviewed the chart and agree that the record accurately reflects my personal performance of the history, physical exam, medical decision making, and the department course for this patient. I have also personally directed, reviewed, and agree with the discharge instructions and disposition. Disposition - Clinical Impression Clinical Impression: Rib fractures - Patient ED Disposition Is Patient to be Admitted: No Doctor Will See Patient In The: Office Counseled Patient/Family Regarding: Studies Performed, Diagnosis, Need For Followup - Disposition Referrals: Hayley Garcia MD [Family Provider] - Disposition: Routine/Home Disposition Time: 11:02 Condition: GOOD Additional Instructions: ZONIA SARGENT, thank you for letting us take care of you today. Your provider was Michelle Suresh MD and you were treated for SOB. The emergency medical care you received today was directed at your acute symptoms. If you were prescribed any medication, please fill it and take as directed. It may take several days for your symptoms to resolve. Return to the Emergency Department if your symptoms worsen, do not improve, or if you have any other problems. Please contact your doctor or call one of the physicians/clinics you have been referred to that are listed on the Patient Visit Information form that is included in your discharge packet. Bring any paperwork you were given at discharge with you along with any medications you are taking to your follow up visit. Our treatment cannot replace ongoing medical care by a primary care provider outside of the emergency department. Thank you for allowing the [facility] team to be part of your care today. If you had an X-Ray or CT scan: A Radiologist will review the ED reading if any change in treatment is needed we will contact you. If you had a blood, urine, or wound culture: It will take several days for the results, if any change in treatment is needed we will contact you. If you had an STI test: It will take 48 hours for the results. Please call after 1 week if you have not heard back. Prescriptions: oxyCODONE/Acetaminophen [Percocet 5/325 mg Tab] 1 ea PO Q6 PRN #15 tab PRN Reason: Pain, Severe (8-10) Instructions: Rib Fractures in Adults
--- NOTE | 2018-06-23 09:06 | RAD ---
Date of service: 06/23/2018 PROCEDURE: Radiographs of the Chest and Right Ribs. HISTORY: right rib chest pain COMPARISON: Chest radiographs 04/20/2017. TECHNIQUE: Frontal radiograph of the chest and multiple oblique radiographs of the right ribs were obtained. FINDINGS: RIGHT RIBS: No fracture or focal lesion visualized. LUNGS: Clear. No significant interval change appreciated. PLEURA: No pneumothorax or pleural fluid. CARDIOVASCULAR: Normal cardiac size. No pulmonary vascular congestion. No aortic atherosclerotic calcification present OTHER FINDINGS: None. IMPRESSION: Unremarkable radiographs of the chest and right ribs. No right rib fracture.
--- NOTE | 2018-06-23 10:03 | CT ---
Date of service: 06/23/2018 PROCEDURE: CT Chest without contrast HISTORY: rib injury fall pain and sob COMPARISON: None available. TECHNIQUE: Contiguous axial images were obtained through the chest without intravenous contrast enhancement. Sagittal and coronal reconstructions were performed. Radiation dose: Total exam DLP = 142.4 mGy-cm. This CT exam was performed using one or more of the following dose reduction techniques: Automated exposure control, adjustment of the mA and/or kV according to patient size, and/or use of iterative reconstruction technique. FINDINGS: LUNGS: Mild posterior dependent atelectasis noted bilaterally. Small nodular opacity noted at the inferior lateral aspect of the right middle lobe may represent infectious process versus sequela of prior infection or inflammatory process. Otherwise the lungs are clear. MEDIASTINUM: Unremarkable thoracic aorta. No aneurysm. The heart is upper normal limit in size. Main pulmonary artery unremarkable. No vascular congestion. No lymphadenopathy. No aortic atherosclerotic calcification. PLEURA: No pleural fluid. No pneumothorax. BONES: There is acute displaced fracture at the posterior aspect of the right 8th rib and acute nondisplaced fracture at the posterior lateral aspect of the right 7th rib. UPPER ABDOMEN: Grossly unremarkable. OTHER FINDINGS: None. IMPRESSION: Acute displaced fracture at the posterior aspect of the right 8th rib and acute nondisplaced fracture at the posterior lateral aspect of the right 7 rib. No evidence of pleural effusion or pneumothorax. No evidence of lung contusion. Small nodular opacity at the right middle lobe.
[2018-06-23] MEDS ORDERED: Oxycodone/Acetaminophen 5/325 mg Tab PO ONE (10:17)
[2018-06-23] MEDS ORDERED: Oxycodone/Acetaminophen 5/325 mg Tab ONE (10:20)
[2018-06-23 11:39] VITALS: BP 128/70; PULSE 71; RESP 18; TEMP 98.1; O2SAT 100
--- NOTE | 2018-06-23 19:17 | CARD ---
APPROVED REPORT Date of service: 06/23/2018 EKG Measurement Heart [id number] <Conclusion> Normal sinus rhythm Normal Electrocardiogram
== END 2018-06-23 11:38 | disposition home or self-care (01) ==
LOC: H.ER 06:59
DX: S22.41XA Multiple fractures of ribs, right side, initial encounter for closed fracture (principal); W08.XXXA Fall from other furniture, initial encounter; Y93.E9 Activity, other interior property and clothing maintenance